=== PATIENT | female | born 1940 | race African-American/Black ===

== ENCOUNTER 2022-12-07 13:07 | Inpatient (IN) | payer MEDICARE, MEDICAID ==
[~2022-12-07] VITALS: Ht 165.1 cm; Wt 53.9 kg
[2022-12-07 14:41] LABS: Basophils # (auto) 0.1 10 ^3/uL (0-0.2); Basophils % (auto) 0.5 % (0.0-2.0); Eosinophils # (auto) 0 10 ^3/uL (0-0.8); Hematocrit 41.6 % (36.0-46.0); Hemoglobin 13.7 g/dL (12.2-16.2); Lymphocytes % (auto) 18.1 % (10.0-50.0); Mean Corpuscular Hemoglobin 29.4 pg (28.0-32.0); Mean Corpuscular Volume 88.9 fL (80.0-100.0); Monocytes # (auto) 0.5 10 ^3/uL (0-1.3); Monocytes % (auto) 4.3 % (0.0-12.0); Neutrophils # (auto) 8.3 10 ^3/uL (1.6-8.6); Neutrophils % (auto) 77.1 % (37.0-80.0); Nucleated Red Blood Cells % 0.1 %; Red Blood Cells 4.67 10^6/uL (4.0-5.20); Red Cell Distribution Width 14.9 % (11.8-14.3); White Blood Cell 10.8 10^3/uL (4.4-10.8)
[2022-12-07] MEDS ORDERED: SODIUM CHLORIDE 0.9% 1,000 ML IV ONE (15:00)
[2022-12-07 15:01] LABS: Albumin 3.7 g/dL (3.4-5.0); Calcium 10.7 mg/dL (8.5-10.1); Potassium 3.3 mmol/L (3.5-5.1)
[2022-12-07 15:04] LABS: Bilirubin, Total 0.6 mg/dL (0.2-1.0); Total Protein 7.2 g/dL (6.4-8.2)
[2022-12-07] MEDS ORDERED: ACETAMINOPHEN 325 MG TAB PO PRN (17:45)
[2022-12-07] MEDS ORDERED: SODIUM CHLORIDE 0.9% 1,000 ML IV SCH (17:45)
[2022-12-07] MEDS ORDERED: POTASSIUM EFFERVESENT TAB 25 MEQ PO ONE (17:45)
[2022-12-07] MEDS ORDERED: MORPHINE SULFATE INJ 2 MG/ml SYRG IV PRN (18:00)
[2022-12-07] MEDS ORDERED: NITROGLYCERIN 0.4 MG SL TAB SL PRN (18:00)
[2022-12-07] MEDS ORDERED: PANTOPRAZOLE 40 MG/10 ML VIAL INJ IV ONE (18:15)
[2022-12-08] MEDS: SOD CHL 0.45% 1,000 ML IV SCH ×2 (01:41→04:00)
[2022-12-08 06:30] LABS: Basophils # (auto) 0 10 ^3/uL (0-0.2); Basophils % (auto) 0.1 % (0.0-2.0); Eosinophils # (auto) 0 10 ^3/uL (0-0.8); Eosinophils % (auto) 0.1 % (0.0-7.0); Hematocrit 42.9 % (36.0-46.0); Hemoglobin 13.7 g/dL (12.2-16.2); Lymphocytes % (auto) 15.2 % (10.0-50.0); Mean Corpuscular Hemoglobin 29.1 pg (28.0-32.0); Mean Corpuscular Hgb Conc. 31.9 g/dL (32.0-36.0); Mean Corpuscular Volume 91.2 fL (80.0-100.0); Monocytes # (auto) 0.4 10 ^3/uL (0-1.3); Monocytes % (auto) 2.8 % (0.0-12.0); Neutrophils # (auto) 10.7 10 ^3/uL (1.6-8.6); Neutrophils % (auto) 81.8 % (37.0-80.0); Nucleated Red Blood Cells % 0.2 %; Red Blood Cells 4.71 10^6/uL (4.0-5.20); Red Cell Distribution Width 14.9 % (11.8-14.3)
[2022-12-08 06:36] LABS: Calcium 10.4 mg/dL (8.5-10.1)
[2022-12-08 06:39] LABS: BUN/Creatinine Ratio 70.7 (10.0-20.0); Bilirubin, Total 0.8 mg/dL (0.2-1.0); Total Protein 7.7 g/dL (6.4-8.2)
[2022-12-08] MEDS: ENOXAPARIN SOD 40 MG/0.4 ML SYRINGE SC SCH ×2 (10:29→10:33)
[2022-12-08] MEDS: PANTOPRAZOLE 40 MG/10 ML VIAL INJ IV SCH ×2 (10:29→10:33)
[2022-12-08] MEDS: D5W 5% 1,000 ML IV SCH (10:56)
[2022-12-08 11:26] LABS: Urine Bacteria FEW /hpf (None Seen); Urine Blood Negative /uL (Negative); Urine Hyaline Cast FEW /lpf (0 - 2); Urine Mucus FEW (None Seen); Urine Specific Gravity 1.025 (1.001-1.035); Urine WBC 91 /hpf (0 - 5)
[2022-12-08 11:41] LABS: Amphetamine Screen, Urine NEGATIVE (NEGATIVE); Barbiturate Scree,Urine NEGATIVE (NEGATIVE); Benzodiazephine Screen, Urine NEGATIVE (NEGATIVE); Cannabinoid Screen, Urine NEGATIVE (NEGATIVE); Cocaine Screen, Urine NEGATIVE (NEGATIVE); Opiate Scree,Urine NEGATIVE (NEGATIVE); Phencyclidine Screen, Urine NEGATIVE (NEGATIVE)
[2022-12-08] MEDS ORDERED: cefTRIAXone 1GM/50ML D5W 50 ML IV ONE (13:45)
[2022-12-08] MEDS: Ensure HIGH Protein Chocolate 8oz Bottle PO SCH (20:36)
[2022-12-08 23:45] VITALS: BP 123/68
[2022-12-09] MEDS: D5W 5% 1,000 ML IV SCH (00:05)
[2022-12-09 05:00] VITALS: BP 143/86
[2022-12-09] MEDS: Ensure HIGH Protein Chocolate 8oz Bottle PO SCH ×3 (08:00→18:00)
[2022-12-09] MEDS: cefTRIAXone 1GM/50ML D5W 50 ML IV SCH (09:53)
[2022-12-09] MEDS: PANTOPRAZOLE 40 MG/10 ML VIAL INJ IV SCH (09:53)
[2022-12-09] MEDS: ENOXAPARIN SOD 40 MG/0.4 ML SYRINGE SC SCH (10:00)
[2022-12-09 10:15] LABS: Basophils # (auto) 0 10 ^3/uL (0-0.2); Basophils % (auto) 0.2 % (0.0-2.0); Eosinophils # (auto) 0 10 ^3/uL (0-0.8); Eosinophils % (auto) 0.4 % (0.0-7.0); Hematocrit 38.3 % (36.0-46.0); Hemoglobin 12.6 g/dL (12.2-16.2); Lymphocytes # (auto) 2.1 10 ^3/uL (0.4-5.4); Mean Corpuscular Hemoglobin 29.7 pg (28.0-32.0); Mean Corpuscular Hgb Conc. 32.8 g/dL (32.0-36.0); Mean Corpuscular Volume 90.3 fL (80.0-100.0); Monocytes # (auto) 0.4 10 ^3/uL (0-1.3); Monocytes % (auto) 3.4 % (0.0-12.0); Neutrophils # (auto) 8.3 10 ^3/uL (1.6-8.6); Nucleated Red Blood Cells % 0.1 %; Red Blood Cells 4.24 10^6/uL (4.0-5.20); Red Cell Distribution Width 14.2 % (11.8-14.3); White Blood Cell 10.8 10^3/uL (4.4-10.8)
[2022-12-09 10:44] LABS: BUN/Creatinine Ratio 69.2 (10.0-20.0); Calcium 10.1 mg/dL (8.5-10.1)
[2022-12-09 11:09] LABS: Potassium 2.9 mmol/L (3.5-5.1)
[2022-12-09] MEDS ORDERED: POTASSIUM CHL 20MEQ/100ML 100 ML IV SCH (13:30)
[2022-12-09] MEDS ORDERED: POTASSIUM EFFERVESENT TAB 25 MEQ PO ONE ×2 (13:30→14:00)
[2022-12-09] MEDS ORDERED: POTASSIUM CHLORIDE 40 MEQ, LIDOCAINE 1% (LOCAL ANESTH.) 4 ML in SODIUM CHL 0.9% 250 ML IV ONE (16:00)
[2022-12-09 17:32] LABS: Urine Bacteria NONE SEEN /hpf (None Seen); Urine Blood 2+ /uL (Negative); Urine Mucus FEW (None Seen); Urine Specific Gravity 1.025 (1.001-1.035); Urine WBC 4 /hpf (0 - 5)
[2022-12-09] MEDS: D5W/SOD CHL 0.45%/KCL 20MEQ 1,000 ML IV SCH (17:47)
[2022-12-09 22:00] VITALS: BP 109/73
[2022-12-10 05:00] VITALS: BP 125/63
[2022-12-10 06:28] LABS: Potassium 3.7 mmol/L (3.5-5.1)
[2022-12-10 06:35] LABS: Albumin 3.4 g/dL (3.4-5.0); BUN/Creatinine Ratio 48.8 (10.0-20.0); Bilirubin, Total 0.5 mg/dL (0.2-1.0); Calcium 9.4 mg/dL (8.5-10.1); Total Protein 5.9 g/dL (6.4-8.2)
[2022-12-10] MEDS ORDERED: ASPI1TAB20 PO (08:23)
[2022-12-10] MEDS ORDERED: HYDR1TAB97 PO (08:23)
[2022-12-10] MEDS ORDERED: ATO40T PO (08:23)
[2022-12-10] MEDS ORDERED: DICL1GEL73 TOP (08:23)
[2022-12-10] MEDS ORDERED: CITA-77 PO (08:23)
[2022-12-10] MEDS ORDERED: BENA40TA70 PO (08:23)
[2022-12-10] MEDS ORDERED: CHLO50TA PO (08:23)
[2022-12-10] MEDS ORDERED: ASCO500T11 GT (08:23)
[2022-12-10] MEDS ORDERED: ACET-1881 PO (08:23)
[2022-12-10] MEDS ORDERED: POTA-220 PO (08:23)
[2022-12-10] MEDS ORDERED: NIFE1TAB30 PO (08:23)
[2022-12-10] MEDS ORDERED: METH-1181 PO (08:23)
[2022-12-10] MEDS ORDERED: B-COTAB19 OR (08:23)
[2022-12-10 09:00] VITALS: BP 119/63
[2022-12-10] MEDS: Ensure HIGH Protein Chocolate 8oz Bottle PO SCH ×3 (09:06→18:00)
[2022-12-10] MEDS: cefTRIAXone 1GM/50ML D5W 50 ML IV SCH (09:06)
[2022-12-10] MEDS: ENOXAPARIN SOD 40 MG/0.4 ML SYRINGE SC SCH (09:43)
[2022-12-10] MEDS: PANTOPRAZOLE 40 MG/10 ML VIAL INJ IV SCH (09:43)
[2022-12-10] MEDS: D5W/SOD CHL 0.45%/KCL 20MEQ 1,000 ML IV SCH (10:00)
[2022-12-10 11:05] LABS: Basophils # (auto) 0 10 ^3/uL (0-0.2); Basophils % (auto) 0.3 % (0.0-2.0); Eosinophils # (auto) 0 10 ^3/uL (0-0.8); Eosinophils % (auto) 0.5 % (0.0-7.0); Hematocrit 33.9 % (36.0-46.0); Hemoglobin 11.1 g/dL (12.2-16.2); Lymphocytes # (auto) 2.4 10 ^3/uL (0.4-5.4); Lymphocytes % (auto) 28.2 % (10.0-50.0); Mean Corpuscular Hemoglobin 29.2 pg (28.0-32.0); Mean Corpuscular Hgb Conc. 32.9 g/dL (32.0-36.0); Mean Corpuscular Volume 88.7 fL (80.0-100.0); Monocytes # (auto) 0.4 10 ^3/uL (0-1.3); Monocytes % (auto) 4.7 % (0.0-12.0); Neutrophils # (auto) 5.5 10 ^3/uL (1.6-8.6); Neutrophils % (auto) 66.3 % (37.0-80.0); Nucleated Red Blood Cells % 0.3 %; Red Blood Cells 3.82 10^6/uL (4.0-5.20); White Blood Cell 8.4 10^3/uL (4.4-10.8)
[2022-12-10 13:00] VITALS: BP 110/57
[2022-12-10 17:00] VITALS: BP 124/63
[2022-12-11 05:00] VITALS: BP 149/80
[2022-12-11] MEDS: D5W/SOD CHL 0.45%/KCL 20MEQ 1,000 ML IV SCH (06:10)
[2022-12-11 06:49] LABS: Basophils # (auto) 0 10 ^3/uL (0-0.2); Basophils % (auto) 0.4 % (0.0-2.0); Eosinophils # (auto) 0.1 10 ^3/uL (0-0.8); Eosinophils % (auto) 0.9 % (0.0-7.0); Hematocrit 33.4 % (36.0-46.0); Hemoglobin 11.4 g/dL (12.2-16.2); Lymphocytes # (auto) 2.7 10 ^3/uL (0.4-5.4); Lymphocytes % (auto) 42.1 % (10.0-50.0); Mean Corpuscular Hemoglobin 29.9 pg (28.0-32.0); Mean Corpuscular Hgb Conc. 34.2 g/dL (32.0-36.0); Mean Corpuscular Volume 87.5 fL (80.0-100.0); Monocytes # (auto) 0.3 10 ^3/uL (0-1.3); Monocytes % (auto) 4.6 % (0.0-12.0); Neutrophils # (auto) 3.4 10 ^3/uL (1.6-8.6); Nucleated Red Blood Cells % 0.4 %; Red Blood Cells 3.81 10^6/uL (4.0-5.20); Red Cell Distribution Width 13.6 % (11.8-14.3); White Blood Cell 6.5 10^3/uL (4.4-10.8)
[2022-12-11 07:06] LABS: Calcium 9.4 mg/dL (8.5-10.1); Magnesium 1.9 mg/dL (1.6-2.6); Potassium 3.5 mmol/L (3.5-5.1)
[2022-12-11] MEDS: Ensure HIGH Protein Chocolate 8oz Bottle PO SCH ×3 (08:00→18:56)
[2022-12-11 08:44] VITALS: BP 127/53
[2022-12-11] MEDS: ENOXAPARIN SOD 30 MG/0.3 ML SYRINGE SC SCH (09:55)
[2022-12-11] MEDS: cefTRIAXone 1GM/50ML D5W 50 ML IV SCH (09:55)
[2022-12-11] MEDS: PANTOPRAZOLE 40 MG/10 ML VIAL INJ IV SCH (09:55)
[2022-12-11 13:00] VITALS: BP 131/68
[2022-12-11] MEDS ORDERED: POTASSIUM PHOSPHATE 26.4 MEQ in SODIUM CHL 0.9% 100 ML IV ONE (13:15)
[2022-12-11] MEDS: MAGNESIUM SULFATE 1GM/100ML 100 ML IV SCH ×2 (14:00→15:00)
[2022-12-11 17:00] VITALS: BP 131/73
[2022-12-11] MEDS: MAGNESIUM OXIDE 400 MG TAB PO SCH (21:06)
[2022-12-11] MEDS: POTASSIUM CHL 20 Meq TABLET PO SCH (21:07)
[2022-12-11 22:00] VITALS: BP 135/68
[2022-12-12] MEDS: D5W/SOD CHL 0.45%/KCL 20MEQ 1,000 ML IV SCH ×2 (02:00→22:00)
[2022-12-12 05:11] VITALS: BP 122/66
[2022-12-12] MEDS: cefTRIAXone 1GM/50ML D5W 50 ML IV SCH (09:00)
[2022-12-12 09:09] VITALS: BP_SYST 73
[2022-12-12] MEDS: ENOXAPARIN SOD 30 MG/0.3 ML SYRINGE SC SCH (09:36)
[2022-12-12] MEDS: Ensure HIGH Protein Chocolate 8oz Bottle PO SCH ×3 (09:36→18:00)
[2022-12-12] MEDS: POTASSIUM CHL 20 Meq TABLET PO SCH (09:37)
[2022-12-12] MEDS: MAGNESIUM OXIDE 400 MG TAB PO SCH ×2 (09:37→22:03)
[2022-12-12] MEDS: PANTOPRAZOLE 40 MG/10 ML VIAL INJ IV SCH (10:00)
[2022-12-12] MEDS ORDERED: CEPH-510 PO (11:57)
[2022-12-12 13:00] VITALS: BP 131/76
[2022-12-12] MEDS ORDERED: PANTOPRAZOLE 40 MG TAB PO ONE (13:30)
[2022-12-12] MEDS ORDERED: cefTRIAXone W LIDOCAINE 1 GM IM IM ONE (13:30)
[2022-12-12 14:46] VITALS: BP 131/76
[2022-12-12 17:02] VITALS: BP 134/68
[2022-12-12] MEDS ORDERED: DOCUSATE SOD 100 MG CAP PO ONE (21:00)
[2022-12-12 21:57] VITALS: BP 140/70
[2022-12-13 05:00] VITALS: BP 136/70
[2022-12-13] MEDS: Ensure HIGH Protein Chocolate 8oz Bottle PO SCH ×2 (08:00→12:00)
[2022-12-13 09:00] VITALS: BP 153/78
[2022-12-13] MEDS: cefTRIAXone 1GM/50ML D5W 50 ML IV SCH (09:00)
[2022-12-13] MEDS: PANTOPRAZOLE 40 MG/10 ML VIAL INJ IV SCH (10:00)
[2022-12-13] MEDS: MAGNESIUM OXIDE 400 MG TAB PO SCH (11:50)
[2022-12-13] MEDS: POTASSIUM CHL 20 Meq TABLET PO SCH (11:50)
[2022-12-13] MEDS: ENOXAPARIN SOD 30 MG/0.3 ML SYRINGE SC SCH (11:50)
[2022-12-13 13:00] VITALS: BP 137/76
== END 2022-12-13 14:15 | disposition home health service (06) | DRG 92 ==
LOC: ER 13:07 → EDBD 13:07 → TELE 17:56 → TELE-WESTW 12-08 22:56
PROVIDERS: ADMIT Nurse Practitioner Family; ATTEND Internal Medicine
DX: G92.8 Other toxic encephalopathy (principal); E87.0 Hyperosmolality and hypernatremia; N39.0 Urinary tract infection, site not specified; I69.354 Hemiplegia and hemiparesis following cerebral infarction affecting left non-dominant side; E86.0 Dehydration; R73.9 Hyperglycemia, unspecified; E87.6 Hypokalemia; I10 Essential (primary) hypertension
CPT/HCPCS: 36415; 70450; 71045; 80048; 80053; 80307; 81001; 82140; 82607; 83036; 83735; 83930; 84100; 84443; 84484; 85025; 87086; 97110; 97163; 97530; C9113; G0378; J0696; J2001

== ENCOUNTER 2025-03-11 09:41 | Inpatient (IN) | payer OTHER, MEDICAID ==
[~2025-03-11] VITALS: Ht 149.9 cm; Wt 55.9 kg
[~2025-03-11 09:41] MED LIST: ACET-1881 PO; ASCO500T11 GT; ASPI1TAB20 PO; ATOR-507 PO; B-COTAB19 OR; BENA40TA71 PO; CEPH-510 PO; CHLO50TA PO; CITA-77 PO; DICL1GEL73 TOP; HYDR1TAB97 PO; METH-1181 PO; NIFE1TAB30 PO; POTA-220 PO
--- NOTE | 2025-03-11 09:56 | ECG ---
[facility] Test Date: 2025-03-11 Test Time: 09:48:55 Pat Name: YELITZA LAINEZ Department: [facility] ED Patient ID: [id number] Room: [address] [place] [address] Gender: F Graphic Specialist: lexie : 1940 Requested By: ANNE HURTADO Order Number: [id number] Reading MD: Jeramie Akhtar Measurements Intervals [place] Rate: 88 P: 44 NV: 128 QRS: 53 QRSD: 74 T: -40 QT: 476 QTc: 576 Interpretive Statements Sinus rhythm Low voltage, precordial leads Minimal ST depression, lateral leads Prolonged QT interval Electronically Signed On 03-13-2025 18:41:38 PDT by Jeramie Akhtar Please click the below link to view image of tracing.
--- NOTE | 2025-03-11 10:06 | ED.PDOC ---
Altered Mental Status HPI Comments This is a 84 year old female BIBA presenting to the ED with chief complaint of ALOC. EMS reports patient has been noted by daughter to be more confused than usual recently along with having poor appetite for the past 2 days. EMS relays that the daughter noticed patient is slower to respond. EMS states patient is unable to ambulate due to prior deficits from a CVA in 2021. Patient denies any chest pain, SOB, dizziness, N/V/D, or abdominal pain. Chief Complaint: General Weakness Time Seen by MD: 10:04 Reviewed Notes: Nurses Notes, Manager Product Management Notes, Medications, Allergies Allergies: Coded Allergies: No Known Drug Allergy (Verified Allergy, Unknown, 12/07/22) Home Meds Active Scripts Cephalexin ( Keflex 500) 500 Mg Cap, 1 CAP PO TID for 5 Days, #15 CAP Prov:SALVADOR REYES MD 12/12/22 Reported Medications Hydrocodone-Acetaminophen (Hydrocodone/Acetaminophen 5-325 mg) 1 Tab Tab, 1 TAB PO DAILYPRN PRN for PAIN SCALE 1 THRU 6 12/10/22 Diclofenac Sodium (Topical) (Diclofenac Sodium) 1 % Gel, 2 GM TOP BID 12/10/22 Methocarbamol (Methocarbamol) 500 Mg Tab, 500 MG PO Q4HPRN PRN for FOR MUSCLE SPASM for 30 Days, MG for muscle spasm 12/10/22 Acetaminophen (Acetaminophen) 325 Mg Tab, 500 MG PO Q6HPRN PRN for MILD PAIN for 30 Days, MG 0 Refills 12/10/22 Atorvastatin Calcium (Lipitor) 40 Mg Tab, 40 MG PO, TAB 12/10/22 Benazepril Hcl (Benazepril Hcl) 40 Mg Tab, 40 MG PO DAILY for 30 Days, MG hold if SBP<110 OR DBP<60 12/10/22 Potassium Chloride (Klor-Con M20) 20 Meq Tab, 20 MEQ PO, TAB 12/10/22 B-Complex Vitamins (Vitamin B Complex) Complex Tab, 1 OR, TAB 12/10/22 Ascorbic Acid (VITAMIN C TABLET) 500 Mg Tb, 500 MG GT, TAB 12/10/22 Aspirin (Aspir-81) 81 Mg Tab, 1 TAB PO DAILY, #30 TAB 5 Refills 12/10/22 Citalopram Hydrobromide (Citalopram Hydrobromide) 20 Mg Tab, 20 MG PO DAILY for 30 Days, MG for depression 12/10/22 Nifedipine (Nifedipine Er) 60 Mg Tab, 1 TAB PO DAILY, #30 TAB 5 Refills hold if SBP<110 OR DBP<60 12/10/22 Chlorthalidone (Chlorthalidone) 50 Mg Tab, 50 MG PO, TAB hold if BP is <110 12/10/22 Information Source: Patient, Emergency Med Personnel Mode of Arrival: EMS Severity: Moderate Timing: Days Duration: Since onset Prehospital treatment: None Quality: Decreased Alertness, Change in Behavior Recent: None History of: None Past Medical History PAST MEDICAL HISTORY: CVA, HTN, UTI'S Surgical History: Denies all surgeries BATTERY FILLER History: Denies all BATTERY FILLER Hx Family History Family History: Reviewed,noncontributory to illness Social History Smoker: Non-Smoker Alcohol: Denies ETOH Use Drugs: Denies Drug Use Lives In: Home Constitutional: denies: chills, diaphoresis, fatigue, fever, malaise, sweats, weakness, others EENTM: denies: blurred vision, double vision, ear bleeding, ear discharge, ear drainage, ear pain, ear ringing, eye pain, eye redness, hearing loss, mouth pain, mouth swelling, nasal discharge, nose bleeding, nose congestion, nose pain, photophobia, tearing, throat pain, throat swelling, voice changes, others Respiratory: denies: cough, hemoptysis, orthopnea, SOB at rest, shortness of breath, SOB with excertion, stridor, wheezing, others Cardiovascular: denies: chest pain, dizzy spells, diaphoresis, Dyspnea on exertion, edema, irregular heart beat, left arm pain, lightheadedness, palpitations, PND, syncope, others Gastrointestinal: reports: poor appetite; denies: abdomen distended, abdominal pain, blood streaked bowels, constipated, diarrhea, dysphagia, difficulty swallowing, hematemesis, melena, nausea, poor fluid intake, rectal bleeding, rectal pain, vomiting, others Genitourinary: denies: abnormal vagina bleeding, burning, dyspareunia, dysuria, flank pain, frequency, hematuria, incontinence, pain, , vagina discharge, urgency, others Neurological: denies: dizziness, fainting, headache, left sided numbness, left sided weakness, numbness, paresthesia, pre-existing deficit, right sided numbness, right sided weakness, seizure, speech problems, tingling, tremors, weakness, others Musculoskeletal: denies: back pain, gout, joint pain, joint swelling, muscle pain, muscle stiffness, neck pain, others Integumetry: denies: bruises, change in color, change in hair/nails, dryness, laceration, lesions, lumps, rash, wounds, others Allergic/Immunocompromised: denies: Difficulty Healing, Frequent Infections, Hives, Itching, others Hematologic/Lymphatic: denies: anemia, blood clots, easy bleeding, easy bruising, swollen glands, others Endocrine: denies: excessive hunger, excessive sweating, excessive thirst, excessive urination, flushing, intolerance to cold, intolerance to heat, unexplained weight gain, unexplained weight loss, others Psychiatric: denies: anxiety, bipolar disorder, depression, hopeless, panic disorder, schizophrenia, sleepless, suicidal, others Unable to Obtain due to: Altered Mental Status All Other Systems: Reviewed and Negative Physical Exam General Appearance: Moderate Distress, Normal HEENT: Normal ENT Inspection, Pharynx Normal, TMs Normal Neck: Full Range of Motion, Non-Tender, Normal, Normal Inspection Respiratory: Chest Non-Tender, Lungs Clear, No Accessory Muscle Use, No Respiratory Distress, Normal Breath Sounds Cardiovascular: No Edema, No JVD, No Murmur, No Gallop, Normal Peripheral Pulses, Regular Rate/Rhythm Breast Exam: Deferred Gastrointestinal: No Organomegaly, Non Tender, No Pulsatile Mass, Normal Bowel Sounds, Soft Genitalia: Deferred Pelvic: Deferred Rectal: Deferred Extremities: Decreased range of motion (Left lower extremity), No calf tenderness, Normal capillary refill, Pedal edema Musculoskeletal : Apperance: Normal Neurologic: Alert, Disoriented, Motor Weakness (Left lower extremity) Cerebellar Function: NOT DONE Reflexes: NOT DONE Skin: Dry, Normal Color, Warm Peripheral Pulses: 3+ Radial (R), 3+ Radial (L) Lymphatic: No Adenopathy EKG EKG : Pulse Rate (adult): 88 [place]: Normal Block: None Hypertrophy: None ST: Normal Comments Sinus arrhythmia Was a procedure done? Was a procedure done?: No Differential Diagnosis (ALOC) Differential Diagnosis: Hypoglycemia, Encephalopathy X-Ray, Labs, Meds, VS Vital Signs Date Time Temp Pulse Resp B/P (MAP) Pulse Ox O2 Delivery O2 Flow Rate FiO2 8/25/25 10:07 88 03/11/25 09:51 98.9 91 15 124/69 95 98.9 03/11/25 09:48 88 Lab Test 03/11/25 10:27 Range/Units White Blood Count 10.1 4.4-10.8 10^3/uL Red Blood Count 4.99 4.0-5.20 10^6/uL Hemoglobin 14.8 12.2-16.2 g/dL Hematocrit 44.2 36.0-46.0 % Mean Corpuscular Volume 88.6 80.0-100.0 fL Mean Corpuscular Hemoglobin 29.7 28.0-32.0 pg Mean Corpuscular Hemoglobin Concent 33.6 32.0-36.0 g/dL Red Cell Distribution Width 13.8 11.8-14.3 % Platelet Count 254 140-450 10^3/uL Mean Platelet Volume 7.5 6.9-10.8 fL Neutrophils (%) (Auto) 72.3 37.0-80.0 % Lymphocytes (%) (Auto) 20.9 10.0-50.0 % Monocytes (%) (Auto) 6.4 0.0-12.0 % Eosinophils (%) (Auto) 0.0 0.0-7.0 % Basophils (%) (Auto) 0.4 0.0-2.0 % Neutrophils # (Auto) 7.3 1.6-8.6 10 ^3/uL Lymphocytes # (Auto) 2.1 0.4-5.4 10 ^3/uL Monocytes # (Auto) 0.7 0-1.3 10 ^3/uL Eosinophils # (Auto) 0 0-0.8 10 ^3/uL Basophils # (Auto) 0 0-0.2 10 ^3/uL Nucleated Red Blood Cells 0.2 % Sodium Level 154 H 136-145 mmol/L Potassium Level 3.5 3.5-5.1 mmol/L Chloride Level 109 H 98-107 mmol/L Carbon Dioxide Level 30 20-31 mmol/L Anion Gap 15 5-15 Blood Urea Nitrogen 34 H 9-23 mg/dL Creatinine 1.06 H 0.550-1.02 mg/dL Glomerular Filtration Rate Calc 52 >90 mL/min BUN/Creatinine Ratio 32.1 H 10.0-20.0 Serum Glucose 181 H 74-106 mg/dL Calcium Level 11.0 H 8.7-10.4 mg/dL Troponin I High Sensitivity 3 L </=34 ng/L Patient altered. Vitals stable. History of dementia. History of hypertension. Possible CVA. Left-sided weaker than the right. No new symptom. Metabolic encephalopathy. Calcium is high. Glucose is high. Sodium is high. Cardiac marker within normal limits. Waiting for family. Continue monitoring. Time of 1ST Reevaluation: 11:04 Reevaluation 1ST: Unchanged Patient Education/Counseling: Diagnosis, Treatment Family Education/Counseling: No Family Present SEPSIS Sepsis Screen Date sepsis recognized/suspect: Mar 11, 2025 Time Sepsis recognized/suspect: 950 Recent Procedure: No On Antibiotic Therapy: No Respiratory Rate >20: No Heart Rate >90: Yes Temp<36 C (96.8 F) or >38.3 C: No SBP <90 or MAP <65 mmHG: No New Acute Mental Status Change: Yes Is the patient on CPAP, BIPAP,: No Physician Orders Chest Portable (03/11/25 09:56) Urinalysis (03/11/25 09:56) Sodium Chloride 0.9% (03/11/25 10:00) Head Without Contrast (03/11/25 09:56) Vital Signs Date Time Temp Pulse Resp B/P (MAP) Pulse Ox O2 Delivery O2 Flow Rate FiO2 03/11/25 10:07 88 03/11/25 09:51 98.9 91 15 124/69 95 98.9 03/11/25 09:48 88 Laboratory Tests Test 03/11/25 10:27 White Blood Count 10.1 10^3/uL (4.4-10.8) Departure 1 Departure Time of Disposition: 12:08 Impression: Primary Impression: Metabolic encephalopathy Additional Impressions: Hypernatremia Uncontrolled diabetes mellitus Qualified Codes: E13.65 - Other specified diabetes mellitus with hyperglycemia Hypercalcemia Disposition: ADMITTED INPATIENT Admit to: Med Surg Condition: Guarded Critical Care Note Critical Care Time?: Yes (90 min-critical care time only) Stability Stability form required: No Heart Score Heart Score: Heart Score Response (Comments) Value History Slightly Suspicious 0 EKG Normal 0 Age >65 2 Risk Factors >3 or Hx ASHD 2 Troponin Normal limit 0 Total 4 I personally scribed for ANNE HURTADO MD ([email or web address]) on 03/11/25 at 10:06. Electronically submitted by Aries Padron ([email or web address]). I personally scribed for ANNE HURTADO MD ([email or web address]) on 03/11/25 at 10:07. Electronically submitted by Aries Padron ([email or web address]). ANNE HURTADO MD Mar 11, 2025 10:06
--- NOTE | 2025-03-11 10:25 | DVH ---
EXAM: CT HEAD WITHOUT CONTRAST INDICATION: altered TECHNIQUE: CT of the head without intravenous contrast. Radiation Dose : 1. Head: CT Dose: CTDI volume is 54.4 mGy. Dose-length product is 1072.03 mGy*cm The dose indicators for CT are the volume Computed Tomography (CT) Dose Index (CTDIvol) and the Dose Length Product (DLP), and are measured in units of mGy and mGy-cm, respectively. These indicators are not patient dose, but values generated from the CT scanner acquisition factors. The report includes radiation exposure data for exposures received during this examination. COMPARISON: CT HEAD WITHOUT CONTRAST on DOS: 12/07/22 FINDINGS: There is no evidence of acute intracranial hemorrhage, extra-axial collection, mass effect, midline s hift, herniation or hydrocephalus. The ventricles, sulci and cisterns are age appropriate. The linares-white differentiation is intact. Patchy periventricular and subcortical white matter hypoattenuation is nonspecific but may be related to small vessel ischemic disease. The visualized paranasal sinuses and mastoid air cells are clear. The surrounding soft tissues and osseous structures are unremarkable. IMPRESSION: No acute intracranial abnormality. Radiation optimization: All CT scans at this facility use at least one of these dose optimization stephie hniques: automated exposure control mA and/or kV adjustment per patient size (includes targeted exam s where dose is matched to clinical indication) or iterative reconstruction.
--- NOTE | 2025-03-11 10:30 | DVH ---
INDICATION: sob TECHNIQUE: Frontal view of the chest. COMPARISON: XY CHEST PORTABLE on DOS: 12/08/22 FINDINGS: . The heart and mediastinal contours are grossly unremarkable. There is no evidence of pleural disea se. The lungs are clear. The bony structures of the chest are intact without fracture. IMPRESSION: 1. No evidence of acute disease.
[2025-03-11 10:56] LABS: Hematocrit 44.2 % (36.0-46.0); Hemoglobin 14.8 g/dL (12.2-16.2); Mean Corpuscular Hemoglobin 29.7 pg (28.0-32.0); Mean Corpuscular Volume 88.6 fL (80.0-100.0); Nucleated Red Blood Cells % 0.2 %
[2025-03-11 10:59] LABS: Anion Gap 15 (5-15); Carbon Dioxide 30 mmol/L (20-31); Potassium 3.5 mmol/L (3.5-5.1)
[2025-03-11 11:03] LABS: Calcium 11.0 mg/dL (8.7-10.4); Chloride 109 mmol/L (98-107); Sodium 154 mmol/L (136-145)
[2025-03-11 11:05] LABS: BUN/Creatinine Ratio 32.1 (10.0-20.0)
[2025-03-11 11:06] LABS: Blood Urea Nitrogen 34 mg/dL (9-23); Glucose 181 mg/dL (74-106)
[2025-03-11 21:00] VITALS: O2SAT 99
[2025-03-11] MEDS: SODIUM CHLORIDE 0.9% 1,000 ML IV ONE (21:29)
[2025-03-11] MEDS: ATORVASTATIN 20 MG TAB PO SCH (22:00)
[2025-03-11] MEDS ORDERED: HYDROcodone-ACET 5/325MG TAB PO PRN (22:00)
[2025-03-11] MEDS ORDERED: DOCUSATE SOD 100 MG CAP PO PRN (22:00)
[2025-03-11] MEDS ORDERED: hydrALAZINE HCL 20 MG/ML VL IV PRN (22:00)
[2025-03-11] MEDS ORDERED: DEXTROSE (50%) 50ML SYRG IV PRN (22:00)
[2025-03-11] MEDS ORDERED: ONDANSETRON HCL 4 MG/2 ML VIAL IV PRN (22:00)
[2025-03-11] MEDS: SODIUM CHLOR 0.9% PF (SALINE LOCK) 10ML VIAL/SYR IV SCH (22:29)
--- NOTE | 2025-03-11 23:07 | DVHHP2 ---
History of Present Illness Reason for Visit: Hypernatremia History of Present Illness The patient is a 84-year-old female with past medical history of CVA, UTIs, and hypertension who presented to [facility] ED for evaluation of altered level of consciousness. As reported by EMS patient's daughter noted patient to be more confused than use baseline associated with for appetite for the past 2 days, slower to respond. Patient is on O2 ambulate due to prior deficit CVA in 2021. Patient was seen and evaluated in the ED, laboratory data shows WBC 10.1, platelets 254, sodium 154, potassium 3.5, BUN 34, creatinine 1.06, glucose 181, calcium 11.0, troponin 3, blood pressure 124/69, heart rate 88, temperature 98.9 F, O2 saturation 96% room air. Head CT showed no acute intracranial abnormality. Please see medication orders section in the computer. On my assessment, patient remains altered, no diaphoresis, no shortness of breath, no nausea, vomiting, fever, no chills. Patient was admitted for further evaluation and medical management. Past Medical History CVA, HTN, UTI'S Past Surgical History Denies all surgeries Family History Reviewed, noncontributory to the management of this case. Past Social History The patient lives at home, denies smoking, alcohol or illicit drugs abuse. Review of Systems Constitutional: Yes: Weakness; No: Fever, Chills, Sweats, Malaise, Other Eyes: No: Pain, Vision change, Conjunctivae inflammation, Eyelid inflammation, Other, Redness ENT: No: Ear pain, Ear discharge, Nose pain, Nose discharge, Nose congestion, Mouth pain, Mouth swelling, Throat pain, Throat swelling, Other Respiratory: No: Cough, Dry, Shortness of breath, SOB with excertion, Wheezing, Hemoptysis, Pleuritic Pain, Sputum, Wheezing, Other Cardiovascular: No: Chest Pain, Palpitations, Orthopnea, Paroxysmal Noc. Dyspnea, Edema, Lt Headedness, Other Gastrointestinal: No: Nausea, Vomiting, Abdominal Pain, Diarrhea, Constipation, Melena, Hematochezia, Other Genitourinary: No Dysuria, No Frequency, No Incontinence, No Hematuria, No Retention, No Other Musculoskeletal: No: other, neck pain, shoulder pain, arm pain, back pain, hand pain, leg pain, foot pain Skin: No: Rash, Lesions, Jaundice, Bruising, Other Neurological: Other (Altered level of consciousness); No: Weakness, Numbness, Incoordination, Change in speech, Confusion, Seizures Allergies: Coded Allergies: No Known Drug Allergy (Verified Allergy, Unknown, 12/07/22) Medications Current Medications Medications Dose Ordered Sig/Daniela Route Start Time Stop Time Status Last Admin Dose Admin Aspirin 81 mg DAILY PO 03/12/25 10:00 Atorvastatin Calcium 20 mg HS PO 03/11/25 22:00 Benazepril HCl 40 mg DAILY PO 03/12/25 10:00 Hydralazine HCl 10 mg Q6HP PRN IV 03/11/25 22:00 Diagnostic Test (Pha) 1 strip IQ4HR 03/12/25 00:00 Insulin Human Regular IQ4HR SC 03/12/25 00:00 Dextrose 50 ml UD PRN IV 03/11/25 22:00 Sodium Chloride 10 ml Q8HR IV 03/11/25 22:00 03/11/25 22:29 10 ML Acetaminophen/ Hydrocodone Bitart 1 tab Q4HP PRN PO 03/11/25 22:00 Ondansetron HCl 4 mg Q4HP PRN IV 03/11/25 22:00 Docusate Sodium 100 mg BIDPRN PRN PO 03/11/25 22:00 Acetaminophen 650 mg Q6HP PRN PO 03/11/25 22:00 Exam Vital Signs Vital Signs Date Time Temp Pulse Resp B/P (MAP) Pulse Ox O2 Delivery O2 Flow Rate FiO2 03/11/25 21:00 98.2 66 11 133/63 (86) 98 98.2 03/11/25 21:00 Room Air* 0 21 General Appearance: Alert, Cooperative, No acute distress, Other (Oriented x2) HEENT: Atraumatic, PERRLA, EOMI, Mucous membr. moist/pink Respiratory: Normal air movement Cardiovascular: Regular rate, Normal S1, Normal S2, No murmurs Abdominal: Normal bowel sounds, Soft, No tenderness, No hepatospenomegaly, No masses Extremities: No clubbing, No cyanosis, No edema, Normal pulses, No tenderness/swelling Skin: No rashes, No significant lesion Neuro: Normal speech, Normal tone, Sensation intact, Cranial nerves 3-12 NL, Reflexes 2+, Other (Generalized weakness) Psych/Mental Status: Mood NL, Other (Altered mental status) Labs/Xrays Labs Test 03/11/25 10:27 Range/Units White Blood Count 10.1 4.4-10.8 10^3/uL Red Blood Count 4.99 4.0-5.20 10^6/uL Hemoglobin 14.8 12.2-16.2 g/dL Hematocrit 44.2 36.0-46.0 % Mean Corpuscular Volume 88.6 80.0-100.0 fL Mean Corpuscular Hemoglobin 29.7 28.0-32.0 pg Mean Corpuscular Hemoglobin Concent 33.6 32.0-36.0 g/dL Red Cell Distribution Width 13.8 11.8-14.3 % Platelet Count 254 140-450 10^3/uL Mean Platelet Volume 7.5 6.9-10.8 fL Neutrophils (%) (Auto) 72.3 37.0-80.0 % Lymphocytes (%) (Auto) 20.9 10.0-50.0 % Monocytes (%) (Auto) 6.4 0.0-12.0 % Eosinophils (%) (Auto) 0.0 0.0-7.0 % Basophils (%) (Auto) 0.4 0.0-2.0 % Neutrophils # (Auto) 7.3 1.6-8.6 10 ^3/uL Lymphocytes # (Auto) 2.1 0.4-5.4 10 ^3/uL Monocytes # (Auto) 0.7 0-1.3 10 ^3/uL Eosinophils # (Auto) 0 0-0.8 10 ^3/uL Basophils # (Auto) 0 0-0.2 10 ^3/uL Nucleated Red Blood Cells 0.2 % Sodium Level 154 H 136-145 mmol/L Potassium Level 3.5 3.5-5.1 mmol/L Chloride Level 109 H 98-107 mmol/L Carbon Dioxide Level 30 20-31 mmol/L Anion Gap 15 5-15 Blood Urea Nitrogen 34 H 9-23 mg/dL Creatinine 1.06 H 0.550-1.02 mg/dL Glomerular Filtration Rate Calc 52 >90 mL/min BUN/Creatinine Ratio 32.1 H 10.0-20.0 Serum Glucose 181 H 74-106 mg/dL Calcium Level 11.0 H 8.7-10.4 mg/dL Troponin I High Sensitivity 3 L </=34 ng/L PATIENT: YELITZA LAINEZ ACCT: [id number] UNIT: [id number] : 1940 LOC: ER ROOM / BED: / AGE / SEX: 84 / F ADM STATUS: REG ER SERVICE [id number] ORDERING PHYSICIAN: ANNE HURTADO MD PROCEDURE(s): HWOCT - HEAD WITHOUT CONTRAST REASON: altered ORDER NUMBER(s): [id number], ACCESSION NUMBER(s): [id number] EXAM: CT HEAD WITHOUT CONTRAST INDICATION: altered TECHNIQUE: CT of the head without intravenous contrast. Radiation Dose: 1. Head: CT Dose: CTDI volume is 54.4 mGy. Dose-length product is 1072.03 mGy*cm The dose indicators for CT are the volume Computed Tomography (CT) Dose Index (CTDIvol) and the Dose Length Product (DLP), and are measured in units of mGy and mGy-cm, respectively. These indicators are not patient dose, but values generated from the CT scanner acquisition factors. The report includes radiation exposure data for exposures received during this examination. COMPARISON: CT HEAD WITHOUT CONTRAST on DOS: 12/07/22 FINDINGS: There is no evidence of acute intracranial hemorrhage, extra-axial collection, mass effect, midline shift, herniation or hydrocephalus. The ventricles, sulci and cisterns are age appropriate. The linares-white differentiation is intact. Patchy periventricular and subcortical white matter hypoattenuation is nonspecific but may be related to small vessel ischemic disease. The visualized paranasal sinuses and mastoid air cells are clear. The surrounding soft tissues and osseous structures are unremarkable. IMPRESSION: No acute intracranial abnormality. ORDERING PHYSICIAN: ANNE HURTADO MD PROCEDURE(s): CXRP - CHEST PORTABLE REASON: sob ORDER NUMBER(s): [id number], ACCESSION NUMBER(s): [id number] INDICATION: sob TECHNIQUE: Frontal view of the chest. COMPARISON: XY CHEST PORTABLE on DOS: 12/08/22 FINDINGS: The heart and mediastinal contours are grossly unremarkable. There is no evidence of pleural disease. The lungs are clear. The bony structures of the chest are intact without fracture. IMPRESSION: 1. No evidence of acute disease. SEPSIS Sepsis Screen Date sepsis recognized/suspect: Mar 11, 2025 Time Sepsis recognized/suspect: 2100 Recent Procedure: No On Antibiotic Therapy: No Respiratory Rate >20: No Heart Rate >90: No Temp<36 C (96.8 F) or >38.3 C: No SBP <90 or MAP <65 mmHG: No New Acute Mental Status Change: No Is the patient on CPAP, BIPAP,: No Physician Orders Consistent Carb(Ccho)Diabetes (03/12/25 Breakfast) Aspirin Tablet (03/12/25 10:00) Atorvastatin (Lipitor) (03/11/25 22:00) Benazepril Hcl Tablet (Lotensin Tablet) (03/12/25 10:00) Hydralazine Injection (Apresoline Inject (03/11/25 22:00) Glucose Blood (Accu-Chek Comfort Curve T (03/12/25 00:00) Insulin R (Human) (Insulin R) (03/12/25 00:00) Dextrose 50% Syringe (03/11/25 22:00) Allergies (03/11/25 21:55) Code Status (03/11/25 21:55) Sodium Chloride Lock (Saline Lock Ns) (03/11/25 22:00) Oxygen Per Hour (03/11/25 21:55) Hydrocodone-Acet 5/325mg Tab ([place] 5/32 (03/11/25 22:00) Ondansetron Hcl (Zofran) (03/11/25 22:00) Docusate Sodium Capsule (Colace Capsule) (03/11/25 22:00) Fall Risk Precautions In Place QSHIFT (03/11/25 21:55) Complete Blood Count (03/12/25 04:00) Comprehensive Metabolic Panel (03/12/25 04:00) Condition: Serious (03/11/25 21:55) Acetaminophen Tablet (Tylenol Tablet) (03/11/25 22:00) Maintain Bed Rest (03/11/25 21:55) Sequential Compression Device (03/11/25 ) Vital Signs Date Time Temp Pulse Resp B/P (MAP) Pulse Ox O2 Delivery O2 Flow Rate FiO2 03/11/25 21:00 98.2 66 11 133/63 (86) 98 98.2 03/11/25 21:00 99 Room Air* 0 21 Medications Medications Dose Ordered Sig/Daniela Route Start Time Stop Time Status Last Admin Dose Admin Sodium Chloride 10 ml Q8HR IV 03/11/25 22:00 03/11/25 22:29 10 ML Assessment/Plan Assessment/Plan Hypernatremia Dehydration Metabolic encephalopathy Hypercalcemia Generalized weakness Plan 1. Admit to telemetry unit 2. Breathing treatment 3. Pain control management 4. Management of fluids and electrolytes 5. Consultation for hospitalist 6. Diagnostic tests head CT 7. DVT prophylaxis-on SCDs 8. Repeat labs CBC, CMP in a.m. 9. Continue with current medical management 10. Treatment plan discussed with patient and RN. Patient verbalized understanding. Plan discussed with: Patient, Other (RN) My Orders Orders - AMANDA GARCÍA DNP Procedure Category Date Status Time Consistent DIET 03/12/25 Transmitted Carb(Ccho)Diabetes Breakfast Aspirin Tablet PHA 03/12/25 In Process 10:00 Atorvastatin (Lipitor) PHA 03/11/25 In Process 22:00 Benazepril Hcl Tablet PHA 03/12/25 In Process (Lotensin Tablet) 10:00 Hydralazine Injection PHA 03/11/25 In Process (Apresoline Inject 22:00 Glucose Blood PHA 03/12/25 In Process (Accu-Chek Comfort 00:00 Insulin R (Human) PHA 03/12/25 In Process (Insulin R) 00:00 Dextrose 50% Syringe PHA 03/11/25 In Process 22:00 Allergies TOMY 03/11/25 In Process 21:55 Code Status CODE 03/11/25 Transmitted 21:55 Sodium Chloride Lock PHA 03/11/25 In Process (Saline Lock Ns) 22:00 Oxygen Per Hour RT 03/11/25 Transmitted 21:55 Hydrocodone-Acet PHA 03/11/25 In Process 5/325mg Tab ([place] 22:00 Ondansetron Hcl PHA 03/11/25 In Process (Zofran) 22:00 Docusate Sodium PHA 03/11/25 In Process Capsule (Colace 22:00 Fall Risk Precautions TOMY 03/11/[address] 21:55 Complete Blood Count LAB 03/12/25 Verified 04:00 Comprehensive LAB 03/12/25 Verified Metabolic Panel 04:00 Condition: Serious TOMY 03/11/25 In Process 21:55 Acetaminophen Tablet PHA 03/11/25 In Process (Tylenol Tablet) 22:00 Maintain Bed Rest TOMY 03/11/25 In Process 21:55 Sequential TOMY 03/11/25 In Process Compression Device Problem List: (1) Hypernatremia (2) Dehydration (3) Metabolic encephalopathy (4) Hypercalcemia (5) Generalized weakness Date of Service: Mar 11, 2025 Billing Provider: AMANDA GARCÍA DNP Common Visit Codes: [id number] INP/OBS CARE (HIGH) AMANDA GARCÍA DNP Mar 11, 2025 23:07
[2025-03-11] MEDS ORDERED: NITROGLYCERIN 0.4 MG SL TAB SL PRN (23:15)
[2025-03-11] MEDS ORDERED: MORPHINE SULFATE INJ 2 MG/ml SYRG IV PRN (23:15)
[2025-03-12] VITALS (9 sets, daily range): BP systolic 122–145; BP diastolic 61–79; PULSE 56–66; RESP 12–18; TEMP 97.3–98.3; O2SAT 93–96
[2025-03-12] MEDS: InsuLIN REG 1unit/0.01ml Soln (100units/ml) SC SCH
[2025-03-12] MEDS: ACCU-CHEK COMFORT CURVE STRIP VI SCH (00:12)
[2025-03-12 01:30] LABS: Urine Protein, UAD Negative (Negative)
[2025-03-12] MEDS: FREE WATER PO SCH (03:09)
[2025-03-12 04:50] LABS: Hematocrit 42.3 % (36.0-46.0); Hemoglobin 14.2 g/dL (12.2-16.2); Mean Corpuscular Hemoglobin 29.6 pg (28.0-32.0); Mean Corpuscular Volume 88.3 fL (80.0-100.0); Nucleated Red Blood Cells % 0.2 %
[2025-03-12 05:00] LABS: Alanine Aminotransferase 28 U/L (7-40); Albumin 4.8 g/dL (3.2-4.8); Alkaline Phosphatase 82 U/L (46-116); Anion Gap 12 (5-15); BUN/Creatinine Ratio 27.8 (10.0-20.0); Blood Urea Nitrogen 20 mg/dL (9-23); Carbon Dioxide 30 mmol/L (20-31); Chloride 107 mmol/L (98-107); Total Protein 7.6 g/dL (5.7-8.2)
[2025-03-12 05:01] LABS: Bilirubin, Total 0.7 mg/dL (0.2-1.0)
[2025-03-12 05:23] LABS: Calcium 10.5 mg/dL (8.7-10.4); Glucose 117 mg/dL (74-106); Potassium 3.1 mmol/L (3.5-5.1); Sodium 149 mmol/L (136-145)
[2025-03-12] MEDS: BENAZEPRIL HCL 10 MG TAB PO SCH (11:13)
[2025-03-12] MEDS: POTASSIUM EFFERVESENT TAB 25 MEQ PO ONE (16:10)
[2025-03-12] MEDS: SODIUM CHLORIDE 0.9% 1,000 ML IV SCH (16:11)
[2025-03-12] MEDS: ACETAMINOPHEN 325 MG TAB PO PRN (20:22)
--- NOTE | 2025-03-12 20:55 | DVHPN2 ---
[facility]ive [facility] Patient is seen and evaluated along with the nurse at bedside. Mentation has improved today have per daughter who is at bedside. She is noted to be severely dehydrated with a hypernatremic. So far no indication of any underlying infection for her confusion. Changes from previous H/P or p: No Changes Eyes: No Pain, No Vision change, No Conjunctivae inflammation, No Eyelid inflammation, No Other, No Redness ENT: No Ear pain, No Ear discharge, No Nose pain, No Nose discharge, No Nose congestion, No Mouth pain, No Mouth swelling, No Throat pain, No Throat swelling, No Other Cardiovascular: No Chest Pain, No Palpitations, No Orthopnea, No Paroxysmal Noc. Dyspnea, No Edema, No Lt Headedness, No Other Respiratory: No Cough, No Dry, No Shortness of breath, No SOB with excertion, No Wheezing, No Hemoptysis, No Pleuritic Pain, No Sputum, No Other Gastrointestinal: No Nausea, No Vomiting, No Abdominal Pain, No Diarrhea, No Constipation, No Melena, No Hematochezia, No Other Genitourinary: No Dysuria, No Frequency, No Incontinence, No Hematuria, No Retention, No Other Musculoskeletal: No other, No neck pain, No shoulder pain, No arm pain, No back pain, No hand pain, No leg pain, No foot pain Skin: No Rash, No Lesions, No Jaundice, No Bruising, No Other Objective Vitals Vital Signs Date Time Temp Pulse Resp B/P (MAP) Pulse Ox O2 Delivery O2 Flow Rate FiO2 03/12/25 13:00 98.0 59 18 145/79 (101) 96 98.0 03/12/25 10:12 Room Air* 0 21 Intake/Output Intake and Output 03/12/25 07:00 Intake Total 75 ml Balance 75 ml IV Total 75 ml Exam Alert and awake. Knows her name. Daughter at bedside. HEENT neck supple no JVD. Pupils equal round react to light. Heart regular rate rhythm S1-S2. Lungs fair air movement without wheezing but poor inspiratory effort. Abdomen soft nontender positive bowel sounds. Extremities no edema positive pulses. 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 Medications Current Medications Medications Dose Ordered Sig/Daniela Route Start Time Stop Time Status Last Admin Dose Admin Aspirin 81 mg DAILY PO 03/12/25 10:00 03/12/25 11:13 81 MG Atorvastatin Calcium 20 mg HS PO 03/11/25 22:00 Benazepril HCl 40 mg DAILY PO 03/12/25 10:00 03/12/25 11:13 40 MG Hydralazine HCl 10 mg Q6HP PRN IV 03/11/25 22:00 Sodium Chloride 10 ml Q8HR IV 03/11/25 22:00 03/12/25 14:14 10 ML Acetaminophen/ Hydrocodone Bitart 1 tab Q4HP PRN PO 03/11/25 22:00 Ondansetron HCl 4 mg Q4HP PRN IV 03/11/25 22:00 Docusate Sodium 100 mg BIDPRN PRN PO 03/11/25 22:00 Acetaminophen 650 mg Q6HP PRN PO 03/11/25 22:00 03/12/25 20:22 650 MG Nitroglycerin 0.4 mg Q5MINP PRN SL 03/11/25 23:15 Morphine Sulfate 2 mg Q30M PRN IV 03/11/25 23:15 Purified Water 200 ml Q4HR PO 03/12/25 02:00 03/12/25 14:16 200 ML Sodium Chloride 1,000 ml @ 100 mls/hr Q10H IV 03/12/25 14:30 03/12/25 16:11 100 MLS/HR Laboratory Results Laboratory Tests 03/12/25 03:59 Chemistry Test 03/12/25 03:59 Albumin 4.8 g/dL (3.2-4.8) Calcium Level 10.5 mg/dL (8.7-10.4) H Total Protein 7.6 g/dL (5.7-8.2) LFT Test 03/12/25 03:59 Alanine Aminotransferase (ALT) 28 U/L (7-40) Alkaline Phosphatase 82 U/L (46-116) Aspartate Amino Transferase (AST) 40 U/L (13-40) Total Bilirubin 0.7 mg/dL (0.2-1.0) Urinalysis Test 03/12/25 00:22 Urine Color Light-yellow (Yellow) Urine Clarity Clear (Clear) Urine pH 6.5 (5.0-9.0) Urine Specific [place] 1.024 (1.001-1.035) Urine Protein Negative (Negative) Urine Ketones Negative (Negative) Urine Blood Negative /uL (Negative) Urine Nitrite Negative (Negative) Urine Bilirubin Negative (Negative) Urine Urobilinogen Normal mg/dL (Negative) Urine Leukocyte Esterase Negative /uL (Negative) Urine RBC None seen /hpf (0 - 4) Urine Microscopic WBC < 1 /HPF (0-5) Urine Squamous Epithelial Cells Few /hpf (<5) Urine Bacteria None seen /hpf (None Seen) Urine Glucose Normal mg/dL (Normal) Assessment/Plan Assessment/Plan I will start her on IV fluids given her dehydration with hypernatremia. Nephrology consultation. Follow sodium levels. Physical therapy evaluation. Resume home medications. Supportive care and treatment. Follow clinical management per clinical course. Discussed with the patient's daughter and nurse at bedside regarding care plan. Plan discussed with: Patient, Daughter, Other My Orders Orders - GUNJAN VILLATORO MD Procedure Category Date Status Time Pureed DIET 03/12/25 Transmitted Lunch Sodium Chloride 0.9% PHA 03/12/25 In Process 14:30 Problem List: (1) Generalized weakness (2) Dehydration (3) Metabolic encephalopathy (4) Hypernatremia (5) Uncontrolled diabetes mellitus (6) Hypercalcemia Date of Service: Mar 12, 2025 Billing Provider: GUNJAN VILLATORO MD Common Visit Codes: [id number] INP/OBS CARE(MOD) GUNJAN VILLATORO MD Mar 12, 2025 20:55
[2025-03-13] VITALS (8 sets, daily range): BP systolic 134–148; BP diastolic 70–82; PULSE 42–69; RESP 16–17; TEMP 96.7–98; O2SAT 92–97
[2025-03-13 07:03] LABS: Anion Gap 11 (5-15); Calcium 9.7 mg/dL (8.7-10.4); Carbon Dioxide 30 mmol/L (20-31); Chloride 107 mmol/L (98-107)
[2025-03-13 07:04] LABS: Potassium 2.8 mmol/L (3.5-5.1); Sodium 148 mmol/L (136-145)
[2025-03-13 07:09] LABS: BUN/Creatinine Ratio 22.8 (10.0-20.0); Blood Urea Nitrogen 13 mg/dL (9-23); Glucose 101 mg/dL (74-106)
[2025-03-13] MEDS: POTASSIUM CHLORIDE 20 MEQ, LIDOCAINE 1% (LOCAL ANESTH.) 2 ML in SODIUM CHL 0.9% 100 ML IV ONE (09:56)
--- NOTE | 2025-03-13 16:00 | DVHPN2 ---
Subjective Overnight events noted. Patient is feeling better. Changes from previous H/P or p: No Changes Eyes: No Pain, No Vision change, No Conjunctivae inflammation, No Eyelid inflammation, No Other, No Redness ENT: No Ear pain, No Ear discharge, No Nose pain, No Nose discharge, No Nose congestion, No Mouth pain, No Mouth swelling, No Throat pain, No Throat swelling, No Other Cardiovascular: No Chest Pain, No Palpitations, No Orthopnea, No Paroxysmal Noc. Dyspnea, No Edema, No Lt Headedness, No Other Respiratory: No Cough, No Dry, No Shortness of breath, No SOB with excertion, No Wheezing, No Hemoptysis, No Pleuritic Pain, No Sputum, No Other Gastrointestinal: No Nausea, No Vomiting, No Abdominal Pain, No Diarrhea, No Constipation, No Melena, No Hematochezia, No Other Genitourinary: No Dysuria, No Frequency, No Incontinence, No Hematuria, No Retention, No Other Musculoskeletal: No other, No neck pain, No shoulder pain, No arm pain, No back pain, No hand pain, No leg pain, No foot pain Skin: No Rash, No Lesions, No Jaundice, No Bruising, No Other Objective Vitals Vital Signs Date Time Temp Pulse Resp B/P (MAP) Pulse Ox O2 Delivery O2 Flow Rate FiO2 03/13/25 13:00 97.1 52 16 148/79 (102) 92 97.1 03/12/25 20:00 Room Air* 0 21 Intake/Output Intake and Output 03/13/25 07:00 Intake Total 840 ml Output Total 651 ml Balance 189 ml Intake Oral 640 ml IV Total 200 ml Output Urine Total 650 ml Stool Total 1 ml Exam HEENT pupils are reactive Neck is supple CV is S1-S2 regular rate and rhythm Respiratory are clear GI positive bowel sound Extremity no edema [employer] no motor deficit Medications Current Medications Medications Dose Ordered Sig/Daniela Route Start Time Stop Time Status Last Admin Dose Admin Aspirin 81 mg DAILY PO 03/12/25 10:00 03/13/25 09:51 81 MG Atorvastatin Calcium 20 mg HS PO 03/11/25 22:00 03/12/25 21:17 20 MG Benazepril HCl 40 mg DAILY PO 03/12/25 10:00 03/13/25 09:52 40 MG Hydralazine HCl 10 mg Q6HP PRN IV 03/11/25 22:00 Sodium Chloride 10 ml Q8HR IV 03/11/25 22:00 03/13/25 15:51 10 ML Acetaminophen/ Hydrocodone Bitart 1 tab Q4HP PRN PO 03/11/25 22:00 Ondansetron HCl 4 mg Q4HP PRN IV 03/11/25 22:00 Docusate Sodium 100 mg BIDPRN PRN PO 03/11/25 22:00 Acetaminophen 650 mg Q6HP PRN PO 03/11/25 22:00 03/12/25 20:22 650 MG Nitroglycerin 0.4 mg Q5MINP PRN SL 03/11/25 23:15 Morphine Sulfate 2 mg Q30M PRN IV 03/11/25 23:15 Purified Water 200 ml Q4HR PO 03/12/25 02:00 03/13/25 15:51 200 ML Laboratory Results Laboratory Tests 03/12/25 03:59 03/13/25 06:30 Chemistry Test 03/13/25 06:30 Calcium Level 9.7 mg/dL (8.7-10.4) Urinalysis Test 03/12/25 00:22 Urine Color Light-yellow (Yellow) Urine Clarity Clear (Clear) Urine pH 6.5 (5.0-9.0) Urine Specific [place] 1.024 (1.001-1.035) Urine Protein Negative (Negative) Urine Ketones Negative (Negative) Urine Blood Negative /uL (Negative) Urine Nitrite Negative (Negative) Urine Bilirubin Negative (Negative) Urine Urobilinogen Normal mg/dL (Negative) Urine Leukocyte Esterase Negative /uL (Negative) Urine RBC None seen /hpf (0 - 4) Urine Microscopic WBC < 1 /HPF (0-5) Urine Squamous Epithelial Cells Few /hpf (<5) Urine Bacteria None seen /hpf (None Seen) Urine Glucose Normal mg/dL (Normal) Assessment/Plan Assessment/Plan 84-year-old male with a known history of diabetes mellitus type 2 who initially was brought in by the daughter with altered mental status and generalized weakness found to have 1. Generalized weakness 2. Hypernatremia likely hypovolemic, started half NS 3. Dehydration 4. Diabetes mellitus type 2 5. Hypercalcemia -gentle IV hydration with the half NS, repeat BMP, PT evaluation and treatment. Plan discussed with: Patient My Orders Orders - SUREKHA DEL ANGEL MD Procedure Category Date Status Time Potassium Chloride PHA 03/13/25 Logged (Potassium Chloride). 14:30 1/2 Ns PHA 03/13/25 Transmitted 16:00 Date of Service: Mar 13, 2025 Billing Provider: SUREKHA DEL ANGEL MD Common Visit Codes: [id number] INP/OBS CARE(MOD) SUREKHA DEL ANGEL MD Mar 13, 2025 16:00
--- NOTE | 2025-03-13 16:15 | DVHINCON2 ---
Date of service: Mar 13, [address] Reji Jang Reason for Consultation Hypernatremia History of Present Illness This is a 84-year-old female with past medical history of CVA with left sided weakness, UTIs, and hypertension who was brought to the ER for evaluation of altered level of consciousness. As per the daughter patient is bed ridden . Patient had been experiencing loss of appetite for the past few days .She was subjected to higher temperature at home as the air conditioning unit had broken down . Initial evaluation in the ER showed evidence of hypernatremia and hence Nephrology consultation . Past Medical History CVA, HTN, UTI'S Past Surgical History Denies all surgeries Family History: Patient reports no known family medical history. Social History The patient lives at home, denies smoking, alcohol or illicit drugs abuse. Allergies: Coded Allergies: No Known Drug Allergy (Verified Allergy, Unknown, 12/07/22) Home Meds Active Scripts Cephalexin ( Keflex 500) 500 Mg Cap, 1 CAP PO TID for 5 Days, #15 CAP Prov:SALVADOR REYES MD 12/12/22 Reported Medications Hydrocodone-Acetaminophen (Hydrocodone/Acetaminophen 5-325 mg) 1 Tab Tab, 1 TAB PO DAILYPRN PRN for PAIN SCALE 1 THRU 6 12/10/22 Diclofenac Sodium (Topical) (Diclofenac Sodium) 1 % Gel, 2 GM TOP BID 12/10/22 Methocarbamol (Methocarbamol) 500 Mg Tab, 500 MG PO Q4HPRN PRN for FOR MUSCLE SPASM for 30 Days, MG for muscle spasm 12/10/22 Acetaminophen (Acetaminophen) 325 Mg Tab, 500 MG PO Q6HPRN PRN for MILD PAIN for 30 Days, MG 0 Refills 12/10/22 Atorvastatin Calcium (Lipitor) 40 Mg Tab, 40 MG PO, TAB 12/10/22 Benazepril Hcl (Benazepril Hcl) 40 Mg Tab, 40 MG PO DAILY for 30 Days, MG hold if SBP<110 OR DBP<60 12/10/22 Potassium Chloride (Klor-Con M20) 20 Meq Tab, 20 MEQ PO, TAB 12/10/22 B-Complex Vitamins (Vitamin B Complex) Complex Tab, 1 OR, TAB 12/10/22 Ascorbic Acid (VITAMIN C TABLET) 500 Mg Tb, 500 MG GT, TAB 12/10/22 Aspirin (Aspir-81) 81 Mg Tab, 1 TAB PO DAILY, #30 TAB 5 Refills 12/10/22 Citalopram Hydrobromide (Citalopram Hydrobromide) 20 Mg Tab, 20 MG PO DAILY for 30 Days, MG for depression 12/10/22 Nifedipine (Nifedipine Er) 60 Mg Tab, 1 TAB PO DAILY, #30 TAB 5 Refills hold if SBP<110 OR DBP<60 12/10/22 Chlorthalidone (Chlorthalidone) 50 Mg Tab, 50 MG PO, TAB hold if BP is <110 12/10/22 Current Medications Current Medications Medications (Trade) Dose Ordered Sig/Daniela Route PRN Reason Start Time Stop Time Status Last Admin Sodium Chloride 1,000 ml @ 100 mls/hr Q10H IV 03/13/25 16:00 Review of Systems 12 point ROS negative except as in HPI Vital Signs Vital Signs Date Time Temp Pulse Resp B/P (MAP) Pulse Ox O2 Delivery O2 Flow Rate FiO2 03/13/25 13:00 97.1 52 16 148/79 (102) 92 97.1 03/13/25 08:00 Room Air* 0 21 Physical Exam Alert and awake.Following simple commands HEENT neck supple no JVD. Pupils equal round react to light. Heart regular rate rhythm S1-S2. Lungs :Bilateral good air entry Abdomen: soft nontender positive bowel sounds. Extremities :no edema INSTRUMENTATION INSTRUCTOR :left hemiparesis Labs/Diagnostic Data Labs Test 03/13/25 06:30 03/12/25 11:41 03/12/25 03:59 03/12/25 00:22 Range/Units Sodium Level 148 H 136-145 mmol/L Potassium Level 2.8 L 3.5-5.1 mmol/L Chloride Level 107 98-107 mmol/L Carbon Dioxide Level 30 20-31 mmol/L Anion Gap 11 5-15 Blood Urea Nitrogen 13 9-23 mg/dL Creatinine 0.57 0.550-1.02 mg/dL Glomerular Filtration Rate Calc 91 >90 mL/min BUN/Creatinine Ratio 22.8 H 10.0-20.0 Serum Glucose 101 74-106 mg/dL Calcium Level 9.7 8.7-10.4 mg/dL POC Glucose 112 H 70-106 mg/dl White Blood Count 9.8 4.4-10.8 10^3/uL Red Blood Count 4.79 4.0-5.20 10^6/uL Hemoglobin 14.2 12.2-16.2 g/dL Hematocrit 42.3 36.0-46.0 % Mean Corpuscular Volume 88.3 80.0-100.0 fL Mean Corpuscular Hemoglobin 29.6 28.0-32.0 pg Mean Corpuscular Hemoglobin Concent 33.5 32.0-36.0 g/dL Red Cell Distribution Width 13.8 11.8-14.3 % Platelet Count 238 140-450 10^3/uL Mean Platelet Volume 7.9 6.9-10.8 fL Neutrophils (%) (Auto) 63.1 37.0-80.0 % Lymphocytes (%) (Auto) 29.0 10.0-50.0 % Monocytes (%) (Auto) 6.7 0.0-12.0 % Eosinophils (%) (Auto) 0.5 0.0-7.0 % Basophils (%) (Auto) 0.7 0.0-2.0 % Neutrophils # (Auto) 6.2 1.6-8.6 10 ^3/uL Lymphocytes # (Auto) 2.8 0.4-5.4 10 ^3/uL Monocytes # (Auto) 0.7 0-1.3 10 ^3/uL Eosinophils # (Auto) 0.1 0-0.8 10 ^3/uL Basophils # (Auto) 0.1 0-0.2 10 ^3/uL Nucleated Red Blood Cells 0.2 % Total Bilirubin 0.7 0.2-1.0 mg/dL Aspartate Amino Transferase (AST) 40 13-40 U/L Alanine Aminotransferase (ALT) 28 7-40 U/L Alkaline Phosphatase 82 46-116 U/L Total Protein 7.6 5.7-8.2 g/dL Albumin 4.8 3.2-4.8 g/dL Urine Color Light-yellow Yellow Urine Clarity Clear Clear Urine pH 6.5 5.0-9.0 Urine Specific [place] 1.024 1.001-1.035 Urine Protein Negative Negative Urine Ketones Negative Negative Urine Blood Negative Negative /uL Urine Nitrite Negative Negative Urine Bilirubin Negative Negative Urine Urobilinogen Normal Negative mg/dL Urine Leukocyte Esterase Negative Negative /uL Urine RBC None seen 0 - 4 /hpf Urine Microscopic WBC < 1 0-5 /HPF Urine Squamous Epithelial Cells Few <5 /hpf Urine Bacteria None seen None Seen /hpf Urine Glucose Normal Normal mg/dL Test 03/11/25 10:27 Range/Units Troponin I High Sensitivity 3 L </=34 ng/L Assessment Hypovolemic hypernatremia Metabolic encephalopathy Hypokalemia HTN H/O CVA with left sided residual deficit Plan/Recommendation Initial free water deficit of 2.5 liter . Sodium levels improving . Agree with hypotonic fluids . Mentation with improvement . Potassium being replaced . BP elevated , will start Nifedipine at bedtime . Labs in AM. Plan discussed with: Daughter SHANNAN TARANGO MD Mar 13, 2025 16:14
[2025-03-13] MEDS: SOD CHL 0.45% 1,000 ML IV SCH (17:42)
[2025-03-13] MEDS: POTASSIUM CHLORIDE 60 MEQ, LIDOCAINE 1% (LOCAL ANESTH.) 6 ML in SODIUM CHL 0.9% 500 ML IV ONE (17:44)
[2025-03-14] VITALS (8 sets, daily range): BP systolic 107–148; BP diastolic 64–75; PULSE 51–78; RESP 16–18; TEMP 97.7–98.6; O2SAT 96–97
[2025-03-14 08:32] LABS: Chloride 104 mmol/L (98-107); Sodium 142 mmol/L (136-145)
[2025-03-14 08:33] LABS: Anion Gap 9 (5-15); Calcium 9.1 mg/dL (8.7-10.4); Carbon Dioxide 29 mmol/L (20-31)
[2025-03-14 08:34] LABS: Potassium 3.0 mmol/L (3.5-5.1)
[2025-03-14 08:38] LABS: BUN/Creatinine Ratio 15.2 (10.0-20.0); Glucose 92 mg/dL (74-106)
[2025-03-14 08:42] LABS: Blood Urea Nitrogen 7 mg/dL (9-23)
[2025-03-14] MEDS: POTASSIUM CHL 20MEQ/100ML 100 ML IV SCH (12:17)
[2025-03-14] MEDS: POTASSIUM CHL 20 Meq TABLET PO ONE (12:19)
--- NOTE | 2025-03-14 14:33 | DVHPN2 ---
Progress Note - Dictate Date Seen: Mar 14, 2025 Medical Necessity Reason Pt with a Central, PICC or Fol: No Subjective no acute issues . more awake vital signs Vital Sign Date Time Temp Pulse Resp B/P (MAP) Pulse Ox O2 Delivery O2 Flow Rate FiO2 03/14/25 13:00 98.3 77 18 148/73 (98) 96 98.3 03/14/25 08:00 Room Air* 0 21 Total Intake and Output 03/13/25 03/13/25 03/14/25 15:00 23:00 07:00 Intake Total 1112 ml 950 ml 320 ml Output Total 400 ml 1700 ml Balance 1112 ml 550 ml -1380 ml medications Current Medications Medications Dose Ordered Sig/Daniela Route Start Time Stop Time Status Last Admin Dose Admin Aspirin 81 mg DAILY PO 03/12/25 10:00 03/14/25 09:23 81 MG Atorvastatin Calcium 20 mg HS PO 03/11/25 22:00 03/13/25 21:10 20 MG Benazepril HCl 40 mg DAILY PO 03/12/25 10:00 03/14/25 09:22 40 MG Hydralazine HCl 10 mg Q6HP PRN IV 03/11/25 22:00 Sodium Chloride 10 ml Q8HR IV 03/11/25 22:00 03/14/25 05:04 10 ML Acetaminophen/ Hydrocodone Bitart 1 tab Q4HP PRN PO 03/11/25 22:00 Ondansetron HCl 4 mg Q4HP PRN IV 03/11/25 22:00 Docusate Sodium 100 mg BIDPRN PRN PO 03/11/25 22:00 Acetaminophen 650 mg Q6HP PRN PO 03/11/25 22:00 03/12/25 20:22 650 MG Nitroglycerin 0.4 mg Q5MINP PRN SL 03/11/25 23:15 Morphine Sulfate 2 mg Q30M PRN IV 03/11/25 23:15 Purified Water 200 ml Q4HR PO 03/12/25 02:00 03/14/25 13:27 200 ML Sodium Chloride 1,000 ml @ 100 mls/hr Q10H IV 03/13/25 16:00 03/14/25 12:46 100 MLS/HR Nifedipine 30 mg HS PO 03/13/25 22:00 03/13/25 21:11 30 MG Potassium Chloride 100 ml @ 50 mls/hr Q2H IV 03/14/25 11:45 03/14/25 15:44 03/14/25 12:17 50 MLS/HR objective Alert and awake.Following simple commands HEENT neck supple no JVD. Pupils equal round react to light. Heart regular rate rhythm S1-S2. Lungs :Bilateral good air entry Abdomen: soft nontender positive bowel sounds. Extremities :no edema INVAS TECH :left hemiparesis laboratory and microbiology Laboratory Tests 03/14/25 07:49 03/12/25 03:59 Test 03/14/25 07:49 Range/Units Serum Glucose 92 74-106 mg/dL Problem List Hypovolemic hypernatremia Metabolic encephalopathy Hypokalemia HTN H/O CVA with left sided residual deficit Assessment/Plan Hypernatremia resolved . Potassium replaced . Cleared for dc from renal stand point Plan discussed with: Daughter EMELINASHANNAN MD Mar 14, 2025 14:33
--- NOTE | 2025-03-14 15:27 | DVHDS2 ---
Discharge Summary Date of Admission Mar 11, 2025 at 23:01 Date of Discharge: Mar 14, 2025 Labs/Diagnostic Data: Laboratory Results Test 03/14/25 07:49 03/12/25 11:41 03/12/25 03:59 03/12/25 00:22 Sodium Level 142 mmol/L (136-145) Potassium Level 3.0 mmol/L (3.5-5.1) Chloride Level 104 mmol/L (98-107) Carbon Dioxide Level 29 mmol/L (20-31) Anion Gap 9 (5-15) Blood Urea Nitrogen 7 mg/dL (9-23) Creatinine 0.46 mg/dL (0.550-1.02) Glomerular Filtration Rate Calc 95 mL/min (>90) BUN/Creatinine Ratio 15.2 (10.0-20.0) Serum Glucose 92 mg/dL (74-106) Calcium Level 9.1 mg/dL (8.7-10.4) POC Glucose 112 mg/dl (70-106) White Blood Count 9.8 10^3/uL (4.4-10.8) Red Blood Count 4.79 10^6/uL (4.0-5.20) Hemoglobin 14.2 g/dL (12.2-16.2) Hematocrit 42.3 % (36.0-46.0) Mean Corpuscular Volume 88.3 fL (80.0-100.0) Mean Corpuscular Hemoglobin 29.6 pg (28.0-32.0) Mean Corpuscular Hemoglobin Concent 33.5 g/dL (32.0-36.0) Red Cell Distribution Width 13.8 % (11.8-14.3) Platelet Count 238 10^3/uL (140-450) Mean Platelet Volume 7.9 fL (6.9-10.8) Neutrophils (%) (Auto) 63.1 % (37.0-80.0) Lymphocytes (%) (Auto) 29.0 % (10.0-50.0) Monocytes (%) (Auto) 6.7 % (0.0-12.0) Eosinophils (%) (Auto) 0.5 % (0.0-7.0) Basophils (%) (Auto) 0.7 % (0.0-2.0) Neutrophils # (Auto) 6.2 10 ^3/uL (1.6-8.6) Lymphocytes # (Auto) 2.8 10 ^3/uL (0.4-5.4) Monocytes # (Auto) 0.7 10 ^3/uL (0-1.3) Eosinophils # (Auto) 0.1 10 ^3/uL (0-0.8) Basophils # (Auto) 0.1 10 ^3/uL (0-0.2) Nucleated Red Blood Cells 0.2 % Total Bilirubin 0.7 mg/dL (0.2-1.0) Aspartate Amino Transferase (AST) 40 U/L (13-40) Alanine Aminotransferase (ALT) 28 U/L (7-40) Alkaline Phosphatase 82 U/L (46-116) Total Protein 7.6 g/dL (5.7-8.2) Albumin 4.8 g/dL (3.2-4.8) Urine Color Light-yellow (Yellow) Urine Clarity Clear (Clear) Urine pH 6.5 (5.0-9.0) Urine Specific [place] 1.024 (1.001-1.035) Urine Protein Negative (Negative) Urine Ketones Negative (Negative) Urine Blood Negative /uL (Negative) Urine Nitrite Negative (Negative) Urine Bilirubin Negative (Negative) Urine Urobilinogen Normal mg/dL (Negative) Urine Leukocyte Esterase Negative /uL (Negative) Urine RBC None seen /hpf (0 - 4) Urine Microscopic WBC < 1 /HPF (0-5) Urine Squamous Epithelial Cells Few /hpf (<5) Urine Bacteria None seen /hpf (None Seen) Urine Glucose Normal mg/dL (Normal) Test 03/11/25 10:27 Troponin I High Sensitivity 3 ng/L (</=34) Other Laboratory Tests 03/14/25 07:49 03/12/25 03:59 Brief Hx & Hospital Course: 84-year-old male with a known history of diabetes mellitus type 2 who initially was brought in by the daughter with altered mental status and generalized weakness found to have hyponatremia suspected secondary to hypovolemia. Patient was given IV hydration. Hyponatremia has been resolved. Patient has acute metabolic encephalopathy secondary to hyponatremia improved. Patient is stable to be discharged. Daughter was updated by the nurse who was requesting more hours of from home health. senior operations manager with patient's insurance was called and notified that patient's daughter requesting more home health hours. Patient is being discharged under stable condition with the home health home safety evaluation and home PT if indicated. Condition at Discharge: Stable Final Diagnosis/Problems List 84-year-old male with a known history of diabetes mellitus type 2 who initially was brought in by the daughter with altered mental status and generalized weakness found to have 1. Generalized weakness 2. Hypernatremia likely hypovolemic, started half NS 3. Dehydration 4. Diabetes mellitus type 2 5. Hypercalcemia Discharge Disposition: Home with Health Services SNF Discharge Will this Physician continue t: No Discharge Instruct/Medications Diet: Cardiac 2g Na,low cholest Activity: No Restrictions, As Tolerated Follow Up/Referral: Follow up with the PCP in 1-2 weeks Medications: Resume home medications. Continued Medications: Acetaminophen (Acetaminophen) 325 Mg Tab 500 MG PO Q6HPRN PRN for MILD PAIN for 30 Days, MG 0 Refills Ascorbic Acid (Vitamin C Tablet) 500 Mg Tb 500 MG GT, TAB Aspirin (Aspir-81) 81 Mg Tab 1 TAB PO DAILY, #30 TAB 5 Refills Atorvastatin Calcium (Lipitor) 40 Mg Tab 40 MG PO, TAB B-Complex Vitamins (Vitamin B Complex) Complex Tab 1 OR, TAB Benazepril Hcl (Benazepril Hcl) 40 Mg Tab 40 MG PO DAILY for 30 Days, MG hold if SBP<110 OR DBP<60 Chlorthalidone (Chlorthalidone) 50 Mg Tab 50 MG PO, TAB hold if BP is <110 Citalopram Hydrobromide (Citalopram Hydrobromide) 20 Mg Tab 20 MG PO DAILY for 30 Days, MG for depression Diclofenac Sodium (Topical) (Diclofenac Sodium) 1 % Gel 2 GM TOP BID Hydrocodone-Acetaminophen (Hydrocodone/Acetaminophen 5-325 mg) 1 Tab Tab 1 TAB PO DAILYPRN PRN for PAIN SCALE 1 THRU 6 Methocarbamol (Methocarbamol) 500 Mg Tab 500 MG PO Q4HPRN PRN for FOR MUSCLE SPASM for 30 Days, MG for muscle spasm Nifedipine (Nifedipine Er) 60 Mg Tab 1 TAB PO DAILY, #30 TAB 5 Refills hold if SBP<110 OR DBP<60 Potassium Chloride (Klor-Con M20) 20 Meq Tab 20 MEQ PO, TAB Discontinued Medications: Cephalexin ( Keflex 500) 500 Mg Cap 1 CAP PO TID for 5 Days, #15 CAP Scheduled Aspirin (Aspir-81), 1 TAB PO DAILY, (Reported) Benazepril Hcl (Benazepril Hcl), 40 MG PO DAILY, (Reported) Cephalexin ( Keflex 500), 1 CAP PO TID Citalopram Hydrobromide (Citalopram Hydrobromide), 20 MG PO DAILY, (Reported) Diclofenac Sodium (Topical) (Diclofenac Sodium), 2 GM TOP BID, (Reported) Nifedipine (Nifedipine Er), 1 TAB PO DAILY, (Reported) Scheduled PRN Acetaminophen (Acetaminophen), 500 MG PO Q6HPRN PRN for MILD PAIN, (Reported) Hydrocodone-Acetaminophen (Hydrocodone/Acetaminophen 5-325 mg), 1 TAB PO DAILYPRN PRN for PAIN SCALE 1 THRU 6, (Reported) Methocarbamol (Methocarbamol), 500 MG PO Q4HPRN PRN for FOR MUSCLE SPASM, (Reported) Miscellaneous Medications Ascorbic Acid (Vitamin C Tablet), 500 MG GT, (Reported) Atorvastatin Calcium (Lipitor), 40 MG PO, (Reported) B-Complex Vitamins (Vitamin B Complex), 1 OR, (Reported) Chlorthalidone (Chlorthalidone), 50 MG PO, (Reported) Potassium Chloride (Klor-Con M20), 20 MEQ PO, (Reported) Discharge Statement: "Patient was advised to return to the ER or call 911 if any headaches, dizziness, shortness of breath, chest pain, abdominal pain, bleeding, fevers, or worsening of medical condition. Patient was counseled about treatment plan, medications, possible side effects, patientverbalized understanding. All questions were answered to the best of my ability. This discharge took greater then 30 minutes in planning, reviewing documentation, counseling the patient, and discussing with other team members." ASSESSMENT ASSESSMENT Assessment 84-year-old male with a known history of diabetes mellitus type 2 who initially was brought in by the daughter with altered mental status and generalized weakness found to have 1. Generalized weakness 2. Hypernatremia likely hypovolemic, started half NS 3. Dehydration 4. Diabetes mellitus type 2 5. Hypercalcemia Date of Service: Mar 14, 2025 Billing Provider: SUREKHA DEL ANGEL MD Common Visit Codes: [id number] DISCH DAY >30min SUREKHA DEL ANGEL MD Mar 14, 2025 15:27
[2025-03-14] MEDS: POTASSIUM EFFERVESENT TAB 25 MEQ PO ONE (15:46)
== END 2025-03-14 18:30 | disposition home health service (06) | DRG 640 ==
LOC: ER 09:41 → EDBD 09:41 → OVERFLOW 23:01 → TELE-EAST 03-12 10:10
PROVIDERS: ADMIT Internal Medicine; ATTEND Internal Medicine
DX: E86.0 Dehydration (principal); G93.41 Metabolic encephalopathy; I69.354 Hemiplegia and hemiparesis following cerebral infarction affecting left non-dominant side; E87.0 Hyperosmolality and hypernatremia; E83.52 Hypercalcemia; I10 Essential (primary) hypertension; E87.6 Hypokalemia; E86.1 Hypovolemia; E11.9 Type 2 diabetes mellitus without complications; Z74.01 Bed confinement status
CPT/HCPCS: 36415; 70450; 71045; 80048; 80053; 81001; 82962; 84132; 84484; 85025; 93005; 96360; 96361; 97163; 99291; 99292; G0378; J2003; J3480